=== PATIENT | female | born 1970 | race Two or more races ===

== ENCOUNTER 2025-09-08 10:17 | Emergency (ER) | payer OTHER ==
[~2025-09-08] VITALS: Ht 152.4 cm; Wt 57.6 kg
[2025-09-08] MEDS ORDERED: DIOVAN40 MG (11:53)
[2025-09-08] MEDS ORDERED: LIPITOR40 M1 (11:53)
[2025-09-08] MEDS ORDERED: DEXAMETHASONE SODIUM PHOSPHATE 4 MG/ML VIAL IM STA (12:15)
[2025-09-08] MEDS ORDERED: MEDROLPACK PO (14:48)
== END 2025-09-08 14:56 | disposition home or self-care (01) ==
LOC: ER 10:18
DX: M25.512 Pain in left shoulder (principal); Z88.6 Allergy status to analgesic agent; W10.0XXA Fall (on)(from) escalator, initial encounter; Y93.89 Activity, other specified; Y92.018 Other place in single-family (private) house as the place of occurrence of the external cause; I10 Essential (primary) hypertension; E78.00 Pure hypercholesterolemia, unspecified; M19.012 Primary osteoarthritis, left shoulder